=== PATIENT | male | born 1945 | race Caucasian/White ===

== ENCOUNTER 2017-04-13 22:29 | Emergency (ER) | payer MEDICARE ==
[~2017-04-13] VITALS: Ht 188 cm; Wt 95.3 kg
[2017-04-13 22:29] VITALS: BP_SYST 105
[~2017-04-13 22:29] MED LIST: ASPI-1063 PO; HYT1 PO; LIP40 PO; OMEP20CA10 PO; PRO20 PO
--- NOTE | 2017-04-13 22:29 | NUR ---
Patient to ER bed 1 to gown for evaluation. Side rails up. Report given to RANDALL GARCIA.
--- NOTE | 2017-04-13 22:30 | NUR ---
KEY Velasquez at bedside examining patient.
[2017-04-13] MEDS ORDERED: NACL 0.9% 1,000 ML IV SCH (22:31)
--- NOTE | 2017-04-13 22:35 | NUR ---
Pt states that he was at the refrigerator and it was slippery. Pt does not remember if he slipped or passed it. Upon assessment, pt is AAOx4. Pt has contusion on forehead. Pt denies nausea. Pt reports pain 12/12. Pt had 1 liter bolus from medic. Pt was hypotensive and bradycardic. Will continue to monitor via heater operator helper. No other injuries or complaints mentioned/noted. 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 Good, equal strength in both legs. Facial symmetry intact. No slurring.
--- NOTE | 2017-04-13 22:36 | NUR ---
# 18 gauge angiocath placed to R AC. Use of asceptic technique. Opsite placed over site. Blood return noted. Blood for lab drawn from site. Flushed with 10 cc of normal saline. No evidence of infiltration noted. Patient tolerated well.
--- NOTE | 2017-04-13 22:36 | NUR ---
Pt placed on 2 LPM of O2 via NC per Dr. Velasquez orders.
[2017-04-13] MEDS ORDERED: ONDANSETRON HCL 4 MG/2 ML VIAL IVP ONE (22:45)
[2017-04-13] MEDS ORDERED: MORPHINE 4 MG/ML INJ. SYRINGE IVP ONE (22:45)
[2017-04-13 22:58] LABS: BASOPHILS # (AUTO) 0.1 K/uL (0.0-0.2); BASOPHILS % (AUTO) 1.3 % (0.0-2.0); EOSINOPHILS # (AUTO) 0.4 K/uL (0.0-0.4); EOSINOPHILS % (AUTO) 6.1 % (0.0-4.0); HEMATOCRIT 40.6 % (36-54); HEMOGLOBIN 13.6 g/dL (14.0-18.0); LYMPHOCYTES # (AUTO) 2.8 K/uL (1.0-5.5); LYMPHOCYTES % (AUTO) 42.3 % (20.5-51.5); MEAN CORPUSCULAR HEMOGLOBIN 30 pg (27-31); MEAN CORPUSCULAR HGB CONC 33 % (32-36); MEAN CORPUSCULAR VOLUME 90 fL (79.0-98.0); MONOCYTES # (AUTO) 0.5 K/uL (0.0-1.0); MONOCYTES % (AUTO) 7.5 % (1.7-9.3); NEUTROPHILS # (AUTO) 2.8 K/uL (1.8-7.7); NEUTROPHILS % (AUTO) 42.8 % (40.0-70.0); PLATELET COUNT (AUTO) 146 K/uL (130-430); RED CELL DISTRIBUTION WIDTH 12.6 % (9.0-15.0); WHITE BLOOD COUNT (AUTO) 6.6 K/uL (4.8-10.8)
[2017-04-13] MEDS ORDERED: ATEN-41 PO (23:02)
[2017-04-13] MEDS ORDERED: BUPR200T2 PO (23:02)
[2017-04-13] MEDS ORDERED: SER25 PO (23:03)
[2017-04-13 23:05] LABS: CALCIUM 7.3 mg/dL (8.4-11.0); CREATININE 1.46 mg/dL (0.55-1.30); POTASSIUM 3.5 mmol/L (3.5-5.1)
[2017-04-13] MEDS ORDERED: LORA-259 PO (23:06)
--- NOTE | 2017-04-13 23:08 | NUR ---
Medication reconciliation completed with information provided by family. Any prior medication reconciliation on file was reviewed and corrected.
[2017-04-13 23:10] LABS: ALBUMIN 2.7 g/dL (3.4-4.8); TOTAL BILIRUBIN 0.8 mg/dL (0.0-1.0)
[2017-04-13] MEDS ORDERED: NACL 0.9% 1,000 ML IV ONE (23:15)
--- NOTE | 2017-04-14 01:00 | NUR ---
Pt is resting comfortably. VSS. Will continue to monitor.
[2017-04-14 01:45] LABS: BILIRUBIN,URINE NEGATIVE (NEGATIVE); BLOOD, URINE NEGATIVE (NEGATIVE); CLARITY/URINE CLEAR (CLEAR); COLOR,URINE YELLOW (YELLOW); GLUCOSE,URINE NEGATIVE (NEGATIVE); KETONES,URINE NEGATIVE (NEGATIVE); LEUKOCYTE ESTERASE ,URINE TRACE (NEGATIVE); NITRITE, URINE NEGATIVE (NEGATIVE); PH,URINE 5.5 (5.0-8.0); PROTEIN URINE NEGATIVE (NEGATIVE); UROBILINOGEN,URINE 0.2 (0.2-1.0)
[2017-04-14 01:47] LABS: RBC,URINE 0-3 /HPF (0-3)
[2017-04-14 01:48] LABS: BACTERIA,URINE MODERATE /HPF (None Seen); MUCUS,URINE 1+ /LPF (None Seen)
[2017-04-14 01:57] LABS: BARBITURATE, URINE NEGATIVE (NEG <=200); BENZODIAZEPINE, URINE NEGATIVE (NEG <=150); CANNABINOID, URINE NEGATIVE (NEG <=50); COCAINE, URINE NEGATIVE (NEG <=150); METHAMPHETAMINES SCREEN,URINE NEGATIVE (NEG <=500); OPIATE, URINE POSITIVE (NEG <=100); PHENCYCLIDINE SCREEN,URINE NEGATIVE (NEG <=25); UR TRICYCLIC ANTIDEPRESSANTS POSITIVE (NEG <=300); URINE AMPHETAMINE NEGATIVE (NEG <=500); URINE METHADONE NEGATIVE (NEG <=200); URINE OXYCODONE SCREEN NEGATIVE (NEG <=100); URINE PROPOXYPHENE SCREEN NEGATIVE (NEG <=300)
[2017-04-14] MEDS ORDERED: KETOROLAC TROMETHAMINE 30 MG VIAL IVP ONE (03:00)
--- NOTE | 2017-04-14 04:42 | NUR ---
Patient to be transferred to [facility]. Is being transferred due to higher level of care. Receiving facility has accepting physician and available space. ER physician has signed transfer form. Patient or responsible libertarian has agreed to transfer and signed form. Patient belongings inventoried and will be sent with patient. Copy of nursing notes, lab reports, EKG, Physicians Orders and X-rays to be sent with patient. Report called to Aroldo PEREIRA at receiving facility. Receiving physician is Dr. Lawson. [facility] ambulance service has been called for transfer. ETA is 30 mins.
[2017-04-14 05:20] VITALS: BP_SYST 112
== END 2017-04-14 04:42 | disposition short-term general hospital (02) ==
LOC: SED 22:29
DX: S02.2XXA Fracture of nasal bones, initial encounter for closed fracture (principal); F43.9 Reaction to severe stress, unspecified; F41.9 Anxiety disorder, unspecified; N17.9 Acute kidney failure, unspecified; E78.00 Pure hypercholesterolemia, unspecified; N40.0 Benign prostatic hyperplasia without lower urinary tract symptoms; K21.9 Gastro-esophageal reflux disease without esophagitis; I10 Essential (primary) hypertension; Z86.73 Personal history of transient ischemic attack (TIA), and cerebral infarction without residual deficits; Z79.899 Other long term (current) drug therapy; W18.09XA Striking against other object with subsequent fall, initial encounter; Y93.89 Activity, other specified; Y92.89 Other specified places as the place of occurrence of the external cause; Y99.8 Other external cause status
CPT/HCPCS: 36415; 70450; 70486; 70490; 71010; 80053; 80307; 81000; 83605; 84484; 85025; 87040; 87086; 87186; 93005; 96361; 96374; 96375; 99285; J1885; J2270; J2405; J7030 ×2